=== PATIENT | male | born 1945 | race Caucasian/White ===

== ENCOUNTER → 2017-01-30 | Day surgery (SDC) | payer MEDICARE ==
[~2017-01-30] MED LIST: FLOMAX0.4 MG PO; PRAVACHOL40 MG PO
== END | disposition home or self-care (01) ==
LOC: OR 06:37
PROVIDERS: Surgery
PROC: 0DJ08ZZ Inspection of Upper Intestinal Tract, Via Natural or Artificial Opening Endoscopic (ICD-10-PCS; principal; 2017-01-30 07:30)
PROC: 0DJD8ZZ Inspection of Lower Intestinal Tract, Via Natural or Artificial Opening Endoscopic (ICD-10-PCS; 2017-01-30 07:30)
DX: D50.9 Iron deficiency anemia, unspecified (principal); M12.9 Arthropathy, unspecified; M15.9 Polyosteoarthritis, unspecified; E78.5 Hyperlipidemia, unspecified; M81.0 Age-related osteoporosis without current pathological fracture; R73.09 Other abnormal glucose; E55.9 Vitamin D deficiency, unspecified; Z79.899 Other long term (current) drug therapy; Z96.651 Presence of right artificial knee joint
CPT/HCPCS: J7120

== ENCOUNTER → 2017-03-06 | Outpatient (CLI) | payer MEDICARE | LOC: KOH-I 08:00 | DX: E04.0 Nontoxic diffuse goiter (principal); E04.1 Nontoxic single thyroid nodule | CPT/HCPCS: 76536 ==

== ENCOUNTER → 2020-09-21 | Outpatient (CLI) | payer MEDICARE ==
[~2020-09-21] MED LIST changes: +VITAMIN D21250 MCG PO
== END ==
LOC: CT 13:26
DX: Z00.00 Encounter for general adult medical examination without abnormal findings (principal); G44.039 Episodic paroxysmal hemicrania, not intractable; G44.059 Short lasting unilateral neuralgiform headache with conjunctival injection and tearing (SUNCT), not intractable; I67.82 Cerebral ischemia
CPT/HCPCS: 36415; 70496; 82565; 84520; Q9967

== ENCOUNTER → 2021-02-02 | Outpatient (CLI) | payer MEDICARE | LOC: RAD 14:36 | DX: M25.561 Pain in right knee (principal); M19.90 Unspecified osteoarthritis, unspecified site | CPT/HCPCS: 73562 ==

== ENCOUNTER → 2021-02-18 | Day surgery (SDC) | payer MEDICARE | END | disposition home or self-care (01) | LOC: OR 11:02 | PROVIDERS: Urology | PROC: 0TJB8ZZ Inspection of Bladder, Via Natural or Artificial Opening Endoscopic (ICD-10-PCS; principal; 2021-02-18 13:15) | DX: N40.1 Benign prostatic hyperplasia with lower urinary tract symptoms (principal); R35.0 Frequency of micturition; R39.15 Urgency of urination; E78.5 Hyperlipidemia, unspecified; Z79.899 Other long term (current) drug therapy; Z20.822 Contact with and (suspected) exposure to COVID-19 | CPT/HCPCS: J7040; J7120; U0002 ==

== ENCOUNTER → 2021-08-23 | Outpatient (CLI) | payer MEDICARE | LOC: RAD 12:26 | DX: M25.561 Pain in right knee (principal) | CPT/HCPCS: 73562 ==

== ENCOUNTER → 2022-01-19 | Day surgery (SDC) | payer MEDICARE ==
[~2022-01-19] MED LIST changes: +EC-NAPROSYN500 MG PO; +EMGALITY120 MG/1 M SQ
== END | disposition home or self-care (01) ==
LOC: OR 05:40
DX: Z12.11 Encounter for screening for malignant neoplasm of colon (principal); Z20.822 Contact with and (suspected) exposure to COVID-19; E78.5 Hyperlipidemia, unspecified; M19.90 Unspecified osteoarthritis, unspecified site; I10 Essential (primary) hypertension; Z79.899 Other long term (current) drug therapy; Z72.89 Other problems related to lifestyle
CPT/HCPCS: J2704; J7120

== ENCOUNTER → 2022-03-14 | Outpatient (CLI) | payer MEDICARE ==
[~2022-03-14] VITALS: Ht 185.4 cm; Wt 83.9 kg
== END ==
LOC: EROP 10:27
DX: U07.1 COVID-19 (principal); Z23 Encounter for immunization
CPT/HCPCS: M0222; Q0222